=== PATIENT | female | born 1990 | race Two or more races ===

== ENCOUNTER 2020-02-07 09:26 | Emergency (ER) | payer MEDICAID ==
[~2020-02-07] VITALS: Ht 167.6 cm; Wt 66.7 kg
--- NOTE | 2020-02-07 10:00 | NUR ---
PT CAME IN CO OF PAINFUL URINATION X 1 MONTH. PT STATES AFTER SHE URINATES SHE HAS PAIN IN HER LLQ AND RLQ FOR AN HOUR AFTER. UA SENT. PT RESTING IN [facility].
[2020-02-07 10:10] LABS: MICROSCOPIC INDICATED
[2020-02-07 10:17] LABS: BASOPHILS % (AUTO) 0 % (0-1); EOSINOPHILS % (AUTO) 0 % (1-7); LYMPHOCYTES % (AUTO) 14 % (22-44); MEAN CORPUSCULAR HEMOGLOBIN 30.3 pg (27.0-34.8); MONOCYTES % (AUTO) 5 % (2-9); NEUTROPHILS % (AUTO) 81 % (42-75); PLATELET COUNT 365 x10^3/uL (130-400); RED CELL DISTRIBUTION WIDTH 12.8 % (9.6-15.2)
[2020-02-07 10:26] LABS: ALANINE AMINOTRANSFERASE 17 U/L (12-78); ALBUMIN 3.9 g/dL (3.4-5.0); ANION GAP 7 mmol/L (5-15); CHLORIDE 109 mmol/L (98-107); CREATININE 0.69 mg/dL (0.55-1.02)
[2020-02-07 10:30] LABS: ALKALINE PHOSPHATASE 80 U/L (45-117); TOTAL PROTEIN 8.5 g/dL (6.4-8.2)
[2020-02-07 10:41] VITALS: BP 137/79
--- NOTE | 2020-02-07 10:42 | NUR ---
PT RESTING IN [facility]. BLANKETS PROVIDED.
[2020-02-07 10:58] LABS: MD SCAN
== END 2020-02-07 12:54 | disposition home or self-care (01) ==
LOC: ED 11:52
DX: R10.2 Pelvic and perineal pain (principal); R10.9 Unspecified abdominal pain; R30.0 Dysuria
CPT/HCPCS: 36415; 76830; 80053; 81001; 84703; 85025; 99284

== ENCOUNTER → 2020-02-07 | Outpatient (CLI) | payer MEDICAID | END | disposition home or self-care (01) | LOC: CFH 13:35 | PROVIDERS: ATTEND Obstetrics & Gynecology | DX: N64.4 Mastodynia (principal); N63.20 Unspecified lump in the left breast, unspecified quadrant; Z80.3 Family history of malignant neoplasm of breast | CPT/HCPCS: 76642; 77066; G0279 ==

== ENCOUNTER 2020-04-30 10:34 | Day surgery (SDC) | payer MEDICAID ==
[2020-04-28 15:58] LABS: BASOPHILS % (AUTO) 0 % (0-1); EOSINOPHILS % (AUTO) 1 % (1-7); LYMPHOCYTES % (AUTO) 37 % (22-44); MEAN CORPUSCULAR HEMOGLOBIN 31.1 pg (27.0-34.8); MEAN CORPUSCULAR HGB CONC 33.6 g/dL (32.4-35.8); MEAN PLATELET VOLUME 7.9 fL (7.4-10.4); MONOCYTES % (AUTO) 9 % (2-9); NEUTROPHILS % (AUTO) 52 % (42-75); PLATELET COUNT 353 x10^3/uL (130-400); RED BLOOD COUNT 4.23 x10^6/uL (3.82-5.3); RED CELL DISTRIBUTION WIDTH 12.8 % (9.6-15.2)
[2020-04-28 16:07] LABS: MD NO
[~2020-04-30] VITALS: Ht 167.6 cm; Wt 64.8 kg
[~2020-04-30 10:34] MED LIST: GABA300C PO
[2020-04-30 10:59] VITALS: BP 133/84
[2020-04-30] MEDS ORDERED: CHLORHEXIDINE 15 ML UDC MM ONE (11:00)
[2020-04-30] MEDS ORDERED: LACTATED RINGERS 1,000 ML IV SCH (11:00)
[2020-04-30] MEDS ORDERED: CHLORHEXIDINE 15 ML UDC ONE (11:05)
[2020-04-30] MEDS ORDERED: BUPIVACAINE/PF 0.25% ONE (11:08)
[2020-04-30] MEDS ORDERED: EPINEPHRINE 1 MG/ML, 1ML ONE (11:08)
[2020-04-30] MEDS ORDERED: SILVER NITRATE STICK TP ONE (11:08)
[2020-04-30] MEDS ORDERED: DEXAMETHASONE 4 MG/ML, 5ML ONE (12:30)
[2020-04-30] MEDS ORDERED: MIDAZOLAM 1 MG/ML, 2ML ONE (12:31)
[2020-04-30] MEDS ORDERED: FENTANYL PF 100 MCG/2ML ONE ×2 (12:47→13:34)
[2020-04-30] MEDS ORDERED: MEPERIDINE/PF 25MG/0.5ML IVPush PRN (13:00)
[2020-04-30] MEDS ORDERED: HYDROmorphone 2 MG/ML, 1ML IVPush PRN (13:00)
[2020-04-30] MEDS ORDERED: PROMETHAZINE 25 MG/ML, 1ML IV PRN (13:00)
[2020-04-30] MEDS ORDERED: KETOROLAC 30 MG/1 ML IV PRN (13:00)
[2020-04-30] MEDS ORDERED: ALBUTEROL SULFATE 2.5 MG/3 ML NPPB PRN (13:00)
[2020-04-30] MEDS ORDERED: DIAZEPAM 5 MG/ML, 2ML IVPush PRN (13:00)
[2020-04-30] MEDS ORDERED: hydrALAzine 20 MG/ML, 1ML IV PRN (13:00)
[2020-04-30] MEDS ORDERED: ACETAMINOPHEN 325 MG TABLET PO PRN (13:00)
[2020-04-30] MEDS ORDERED: LABETALOL 5MG/ML, 20ML IV PRN (13:00)
[2020-04-30] MEDS ORDERED: OXYcodone 5 MG/5 ML ORAL.SOL UDC PO PRN (13:00)
[2020-04-30] MEDS ORDERED: SUCCINYLCHOLINE 20 MG/ML, 10ML ONE (13:02)
[2020-04-30] MEDS ORDERED: PROPOFOL 10 MG/ML, 20ML ONE (13:02)
[2020-04-30] MEDS ORDERED: ROCURONIUM 10MG/ML,5ML ONE (13:02)
[2020-04-30] MEDS ORDERED: GLYCOPYRROLATE 0.2MG/1ML, 5ML ONE (13:02)
[2020-04-30] MEDS ORDERED: NEOSTIGMINE 1 MG/ML, 10ML ONE (13:02)
[2020-04-30] MEDS ORDERED: CEFAZOLIN 1,000 MG ONE (13:02)
[2020-04-30] MEDS ORDERED: ONDANSETRON 2MG/ML, 2ML ONE (13:02)
[2020-04-30] MEDS ORDERED: OXYcodone 5 MG/5 ML ORAL.SOL UDC ONE (13:34)
[2020-04-30] MEDS: FENTANYL PF 100 MCG/2ML IV PRN ×2 (13:48→13:53)
== END 2020-04-30 15:30 | disposition home or self-care (01) ==
LOC: OUT 10:34
PROVIDERS: ATTEND Obstetrics & Gynecology
DX: N93.8 Other specified abnormal uterine and vaginal bleeding (principal); N84.0 Polyp of corpus uteri; Z20.828 Contact with and (suspected) exposure to other viral communicable diseases; Z98.890 Other specified postprocedural states; Z88.8 Allergy status to other drugs, medicaments and biological substances; Z72.89 Other problems related to lifestyle; Z79.899 Other long term (current) drug therapy
CPT/HCPCS: 36415; 58558; 84703; 85025; 88305; J0171; J0330; J0690; J1100; J2250; J2405; J2704; J2710; J3010; J7120; U0003